=== PATIENT | female | born 1930 | race Caucasian/White ===

== ENCOUNTER → 2017-02-08 | Outpatient (CLI) | payer MEDICARE, BC ==
[~2017-02-08] MED LIST: ASAC400T PO; ASPI81 PO; ATEN1TAB73 PO; CORNPOW11 PO; HYZA100T4 PO; KLOR8TAB PO; SALI0.65; TRAV0.00 RIGHT EYE; TUMS500C CHEW; [UNRECOGNIZED DRUG - OTHER] PO
== END ==
LOC: PLAB 14:37
PROVIDERS: ATTEND Ophthalmology
DX: M31.6 Other giant cell arteritis (principal); H53.10 Unspecified subjective visual disturbances
CPT/HCPCS: 36415; 85652; 86140